=== PATIENT | male | born 2000 | race Caucasian/White ===

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

== ENCOUNTER 2022-04-19 22:26 | Emergency (ER) | payer SELFPAY ==
[2022-04-19] MEDS ORDERED: IBUPROFEN 200 MG TAB PO ONE (22:40)
[2022-04-19] MEDS ORDERED: IBUPROFEN 400 MG TAB ONE (22:40)
[2022-04-19 23:30] LABS: SARS-COV-2 RT PCR NEGATIVE (NEGATIVE)
--- NOTE | 2022-04-19 23:56 | ER ---
Nurse's Notes [facility] Name: Mahesh Calixto Age: 22 yrs Sex: Male : 2000 Arrival Date: 04/19/2022 Time: 22:27 Bed 10 Private MD: Diagnosis: Influenza due to identified novel influenza A virus Presentation: 04/19 22:40 Chief complaint: Patient states: Pt reports fever, cough/congestion, runny nose x3 days.kb3 22:40 Method Of Arrival: Ambulatory kb3 22:40 Coronavirus screen: Vaccine status: Patient reports being unvaccinated. Client denies kb3 travel out of the [place] in the last 14 days. Ebola Screen: Patient negative for fever greater than or equal to 101.5 degrees Fahrenheit, and additional compatible Ebola Virus Disease symptoms Patient denies exposure to infectious person. Patient denies travel to an Ebola-affected area in the 21 days before illness onset. Initial Sepsis Screen: Does the patient meet any 2 criteria? No. Patient's initial sepsis screen is negative. Does the patient have a suspected source of infection? No. Patient's initial sepsis screen is negative. Risk Assessment: Do you want to hurt yourself or someone else? Patient reports no desire to harm self or others. Onset of symptoms was April 16, 2022. 22:40 Acuity: VALDEMAR 4 kb3 Triage Assessment: 22:40 General: Appears in no apparent distress. Behavior is calm, cooperative. kb3 22:40 Pain: Complains of pain in head, chest, right arm, left arm, right leg and left leg kb3 Pain does not radiate. Pain currently is 7 out of 10 on a pain scale. Quality of pain is described as aching. Historical: - Allergies: 23:07 No Known Allergies; kb3 - Home Meds: 23:07 None [Active]; kb3 - PMHx: 23:07 None; kb3 - PSHx: 23:07 None; kb3 - Immunization history:: Adult Immunizations up to date, Client reports having NOT received the Covid vaccine. Last tetanus immunization: unknown. - Social history:: Smoking status: Patient denies any tobacco usage or history of. Screenin:56 Abuse screen: Denies threats or abuse. Nutritional screening: No deficits noted. vc1 Tuberculosis screening: No symptoms or risk factors identified. Fall Risk None identified. Vital Signs: 22:40 BP 106 / 78; Pulse 135; Resp 20; Temp 100.5; Pulse Ox 100% ; Weight 81.65 kg; Height 5 kb3 ft. 9 in. (175.26 cm); Pain 8/10; 23:59 BP 104 / 62; Pulse 112; Resp 18; Temp 99.6(O); Pulse Ox 100% ; vc1 04/20 00:00 Temp 99.6(O); vc1 04/19 22:40 Body Mass Index 26.58 (81.65 kg, 175.26 cm) kb3 ED Course: 04/19 22:27 Patient arrived in ED. bp1 22:27 Sammy Kaur DO is Attending Physician. ms3 22:29 [facility]C [facility] kb 22:40 COVID-19/FLU A+B (Document "Date of Onset" if Symptomatic) Sent. kb3 22:40 Arm band placed on right wrist. kb3 23:07 Triage completed. kb3 23:56 No provider procedures requiring assistance completed. Patient did not have IV access vc1 during this emergency room visit. 23:56 Adult w/ patient. vc1 Administered Medications: 22:40 Drug: Ibuprofen 600 mg Route: PO; kb3 04/20 00:00 Follow up: Temp 99.6 Oral; Response: No adverse reaction; Temperature is decreased vc1 Medication: 04/19 23:56 VIS not applicable for this client. vc1 Outcome: 23:55 Discharge ordered by . kb 04/20 00:00 Discharged to home ambulatory. vc1 Condition: good Discharge instructions given to patient, Instructed on discharge instructions, follow up and referral plans. Demonstrated understanding of instructions, follow-up care. 00:00 Patient left the ED. vc1 Signatures: Gracy Johnson FNP-C FNP-Sammy Carrasco DO DO ms3 Karlee Lorenz Vanessa RN RN vc1 Arely Smith, BEA RN kb3
--- NOTE | 2022-04-19 23:56 | EDPHYS ---
Physician Documentation [facility] Name: Mahesh Calixto Age: 22 yrs Sex: Male : 2000 Arrival Date: 04/19/2022 Time: 22:27 Bed 10 Private MD: ED Physician Sammy Kaur HPI: 04/19 22:59 This 22 yrs old Male presents to ER via Unassigned with complaints of Fever, Cough, kb Runny Nose. 22:59 The patient or guardian reports cough, that is intermittent, described as mild, with no kb sputum, flu symptoms, low-grade fever. Onset: The symptoms/episode began/occurred 3 day(s) ago. Severity of symptoms: At their worst the symptoms were moderate, in the emergency department the symptoms are unchanged. Modifying factors: The symptoms are alleviated by nothing, the symptoms are aggravated by nothing. Associated signs and symptoms: Pertinent positives: fever, rhinorrhea. The patient has not experienced similar symptoms in the past. The patient has not recently seen a physician. Historical: - Allergies: 23:07 No Known Allergies; kb3 - Home Meds: 23:07 None [Active]; kb3 - PMHx: 23:07 None; kb3 - PSHx: 23:07 None; kb3 - Immunization history:: Adult Immunizations up to date, Client reports having NOT received the Covid vaccine. Last tetanus immunization: unknown. - Social history:: Smoking status: Patient denies any tobacco usage or history of. ROS: 22:58 Abdomen/GI: Negative for abdominal pain, nausea, vomiting, diarrhea, and constipation. kb 22:58 Constitutional: Positive for fever, malaise. 22:58 ENT: Positive for sinus congestion. 22:58 Respiratory: Positive for cough. 22:58 All other systems are negative. Exam: 22:58 Constitutional: This is a well developed, well nourished patient who is awake, alert, kb and in no acute distress. Head/Face: Normocephalic, atraumatic. ENT: Moist Mucous membranes Cardiovascular: Regular rate and rhythm with a normal S1 and S2. No gallops, murmurs, or rubs. No pulse deficits. Respiratory: Respirations even and unlabored. No increased work of breathing. Talking in full sentences Abdomen/GI: Soft, non-tender. No distention Skin: Warm, dry with normal turgor. Normal color. MS/ Extremity: Pulses equal, no cyanosis. Neurovascular intact. Full, normal range of motion. Neuro: Awake and alert, GCS 15, oriented to person, place, time, and situation. Moves all extremities. Normal gait. Vital Signs: 22:40 BP 106 / 78; Pulse 135; Resp 20; Temp 100.5; Pulse Ox 100% ; Weight 81.65 kg; Height 5 kb3 ft. 9 in. (175.26 cm); Pain 8/10; 23:59 BP 104 / 62; Pulse 112; Resp 18; Temp 99.6(O); Pulse Ox 100% ; vc1 04/20 00:00 Temp 99.6(O); vc1 04/19 22:40 Body Mass Index 26.58 (81.65 kg, 175.26 cm) kb3 MDM: 04/19 22:29 Patient medically screened. kb 22:58 Data reviewed: vital signs, nurses notes. Data interpreted: Pulse oximetry: on room air kb is 98 %. Interpretation: normal. Counseling: I had a detailed discussion with the patient and/or guardian regarding: the historical points, exam findings, and any diagnostic results supporting the discharge/admit diagnosis, lab results, the need for outpatient follow up, a family practitioner, to return to the emergency department if symptoms worsen or persist or if there are any questions or concerns that arise at home. 04/19 22:35 Order name: COVID-19/FLU A+B (Document "Date of Onset" if Symptomatic); Complete Time: 23:55 Administered Medications: 22:40 Drug: Ibuprofen 600 mg Route: PO; kb3 04/20 00:00 Follow up: Temp 99.6 Oral; Response: No adverse reaction; Temperature is decreased vc1 Disposition: 00:45 Co-signature as Attending Physician, Sammy Kaur DO I was immediately available on-site ms3 in the Emergency Department for consultation in the care of the patient. Disposition Summary: 04/19/22 23:55 Discharge Ordered Location: Home Condition: Stable kb Diagnosis - Influenza due to identified novel influenza A virus kb Followup: kb - With: Emergency Department - When: As needed - Reason: Worsening of condition Followup: kb - With: Private Physician - When: 2 - 3 days - Reason: Recheck today's complaints, Continuance of care, Re-evaluation by your physician Discharge Instructions: - Discharge Summary Sheet kb - Influenza, Pediatric, [id number] kb Forms: - Medication Reconciliation Form kb - Thank You Letter kb - Antibiotic Education kb - Prescription Opioid Use kb Signatures: Dispatcher [employer] EDMS Gracy Johnson, Sammy Duffy DO DO ms3 Arely Smith RN RN kb3 Christie Bucio RN vc1
== END 2022-04-20 | disposition home or self-care (01) ==
LOC: ER 22:26
DX: J10.1 Influenza due to other identified influenza virus with other respiratory manifestations (principal); Z20.822 Contact with and (suspected) exposure to COVID-19
CPT/HCPCS: 0240U; 99283